=== PATIENT | male | born 1945 | race Caucasian/White ===

== ENCOUNTER 2017-04-07 01:08 | Emergency (ER) | payer OTHER, BC ==
[2017-04-07 01:32] VITALS: BP 113/65; PULSE 82; BMI 41.5
[2017-04-07 01:35] VITALS: TEMP 98.2
[2017-04-07] MEDS ORDERED: valACYclovir HCL 1000 MG TABLET PO ONE (02:56)
[2017-04-07] MEDS ORDERED: OXYCODONE/APAP 5/325MG COMBO TABLET PO PRN (02:56)
--- NOTE | 2017-04-07 03:16 | PDOC ---
History of Present Illness - General Chief Complaint: Pain Stated Complaint: SHOULDER PAIN Time Seen by Provider: 04/07/17 02:22 - History of Present Illness Initial Comments: 04/07/17 03:06 CHIEF COMPLAINT: shingles HISTORY OF PRESENT ILLNESS: 72 yo M presents to ED with shingles outbreak. Patient reports "I know what this is, this is exactly like all my other shingles outbreaks. I just wanted to get some pain medicine because it's really painful." ALLERGIES: No known drug allergies REVIEW OF SYSTEMS General/Constitutional: Denies fever or chills. Denies weakness, weight change. HEENT: Denies change in vision. Denies ear pain or discharge. Denies sore throat. Cardiovascular: Denies chest pain or shortness of breath. Respiratory: Denies cough, wheezing, or hemoptysis. Gastrointestinal: Denies nausea, vomiting, diarrhea or constipation. Denies rectal bleeding. Genitourinary: Denies dysuria, frequency, or change in urination. Musculoskeletal: Denies joint or muscle swelling or pain. Denies neck or back pain. Skin and breasts: Shingles outbreak. PHYSICAL EXAM General Appearance: Well-appearing, appropriately dressed. No apparent distress , no intoxication. HEENT: EOMI, PERRLA, normal ENT inspection, normal voice, TMs normal, pharynx normal. No conjunctival pallor. No photophobia, scleral icterus. Respiratory/Chest: Lungs CTAB. Cardiovascular: RRR. S1, S2. No JVD, murmur, bradycardia, tachycardia. Integumentary: Unilateral vesicular rash to R upper body, no facial or eye involvement. 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 Fully oriented, alert. Appropriate mood/affect. Motor strength 5/5. No appreciable EOM palsy, facial droop or sensory deficit. Past History - Past Medical History Allergies/Adverse Reactions: Allergies Allergy/AdvReac Type Severity Reaction Status Date / Time No Known Allergies Allergy Verified 04/07/17 01:28 Home Medications: Ambulatory Orders Aspirin Coated [Ecotrin -] 81 mg PO DAILY 10/04/12 Multivitamin [Multiple Vitamins] 1 each PO DAILY 10/04/12 Tamsulosin HCl 0.4 mg PO DAILY 10/04/12 Valsartan/Hydrochlorothiazide [Diovan Hct 160-12.5 mg Tablet -] 1 combo PO DAILY 10/04/12 Ascorbic Acid [Vitamin C -] 500 mg PO DAILY 07/01/13 Cholecalciferol (Vitamin D3) [Vitamin D3] 1,000 unit PO DAILY 07/01/13 Atorvastatin Calcium 20 mg PO HS 04/07/17 Oxycodone HCl/Acetaminophen [Percocet 5-325 mg Tablet] 1 combo PO Q6H PRN #20 tablet MDD 4 04/07/17 Valacyclovir HCl [Valtrex -] 1,000 mg PO TID #21 tablet 04/07/17 Anemia: No Asthma: No Cancer: No Cardiac Disorders: No CVA: No COPD: No CHF: No Dementia: No Diabetes: No GI Disorders: No Disorders: Yes ([facility]) HTN: Yes Hypercholesterolemia: No Liver Disease: No Seizures: No Thyroid Disease: No Other medical history: shingles - Surgical History Abdominal Surgery: Yes Appendectomy: No Cardiac Surgery: No Cholecystectomy: Yes (OPEN) Lung Surgery: No Neurologic Surgery: No Orthopedic Surgery: No - Psycho/Social/Smoking Cessation Hx Anxiety: No Suicidal Ideation: No Smoking Status: No Smoking History: Former smoker Have you smoked in the past 12 months: No Number of Cigarettes Smoked Daily: 0 If you are a former smoker, when did you quit?: 1959'S Information on smoking cessation initiated: No Hx Alcohol Use: No Drug/Substance Use Hx: No Hx Substance Use Treatment: No *Physical Exam - Vital Signs Last Vital Signs Temp Pulse Resp BP Pulse Ox 98.2 F 82 18 113/65 93 L 04/07/17 01:34 04/07/17 01:30 04/07/17 01:30 04/07/17 01:30 04/07/17 01:30 *DC/Admit/Observation/Transfer Diagnosis at time of Disposition: Shingles outbreak Qualifiers: Herpes zoster complications: without complications Qualified Code(s): B02.9 - Zoster without complications - Discharge Dispostion Disposition: HOME Admit: No - Prescriptions Prescriptions: Oxycodone HCl/Acetaminophen [Percocet 5-325 mg Tablet] 1 combo PO Q6H PRN #20 tablet MDD 4 PRN Reason: Pain Level 6-10 Valacyclovir HCl [Valtrex -] 1,000 mg PO TID #21 tablet - Referrals Referrals: Joshua Portillo MD [Primary Care Provider] - - Patient Instructions Printed Discharge Instructions: DI for Shingles Additional Instructions: Please take medications as prescribed and follow up with Dr. Portillo within the next 3-5 days. If you experience any rash, tingling, or pain to your face or eyes, please return to the ER immediately.
[2017-04-07] MEDS ORDERED: OXYCODONE/APAP 5/325MG COMBO TABLET ONE (03:24)
--- NOTE | 2017-04-07 03:32 | PDOC ---
[id number] 93 L 04/07/17 01:34 04/07/17 01:30 04/07/17 01:30 04/07/17 01:30 04/07/17 01:30 ED Treatment Course - Medications Given in the ED: ED Medications Discontinued Medications Generic Name Dose Route Start Last Admin Trade Name Freq PRN Reason Stop Dose Admin Valacyclovir HCl 1,000 mg 04/07/17 02:56 04/07/17 03:26 Valtrex - PO 04/07/17 02:57 1,000 mg ONCE ONE Administration Medical Decision Making - Medical Decision Making 04/07/17 03:32 agree with care from VERONICA Morales *DC/Admit/Observation/Transfer Diagnosis at time of Disposition: Shingles outbreak - Discharge Dispostion Disposition: HOME - Prescriptions Prescriptions: Oxycodone HCl/Acetaminophen [Percocet 5-325 mg Tablet] 1 combo PO Q6H PRN #20 tablet MDD 4 PRN Reason: Pain Level 6-10 Valacyclovir HCl [Valtrex -] 1,000 mg PO TID #21 tablet - Referrals Referrals: Joshua Portillo MD [Primary Care Provider] - - Patient Instructions Printed Discharge Instructions: DI for Shingles Additional Instructions: Please take medications as prescribed and follow up with Dr. Portillo within the next 3-5 days. If you experience any rash, tingling, or pain to your face or eyes, please return to the ER immediately.
== END 2017-04-07 03:36 | disposition home or self-care (01) ==
LOC: JER 01:08
DX: B02.9 Zoster without complications (principal); I10 Essential (primary) hypertension; N40.0 Benign prostatic hyperplasia without lower urinary tract symptoms
CPT/HCPCS: 99282-25

== ENCOUNTER 2019-05-08 10:08 | Day surgery (SDC) | payer OTHER, BC ==
[2019-05-02 14:47] VITALS: BMI 39.8
[2019-05-08 11:33] VITALS: BP 193/108; PULSE 80; TEMP 97.8
[2019-05-08] MEDS ORDERED: LIDOCAINE HCL/PF 2% SDV 5ML VIAL ONE (12:18)
[2019-05-08] MEDS ORDERED: PROPOFOL 20 ML ONE ×2 (12:18)
[2019-05-08] MEDS ORDERED: LABETALOL HCL 100 MG TABLET (FP) PO ONE (12:50)
== END 2019-05-08 14:00 | disposition home or self-care (01) ==
LOC: FASU 10:08
PROVIDERS: ATTEND Internal Medicine Gastroenterology
PROC: 0DJD8ZZ Inspection of Lower Intestinal Tract, Via Natural or Artificial Opening Endoscopic (ICD-10-PCS; principal; 2019-05-08)
DX: Z53.09 Procedure and treatment not carried out because of other contraindication (principal); R10.9 Unspecified abdominal pain; R03.0 Elevated blood-pressure reading, without diagnosis of hypertension
CPT/HCPCS: 82962

== ENCOUNTER 2019-10-16 09:33 | Day surgery (SDC) | payer OTHER, BC ==
[2019-10-16 10:35] VITALS: BMI 39.5
[2019-10-16 12:59] VITALS: BP 145/86
[2019-10-16 13:01] VITALS: PULSE 84; TEMP 97.8
--- NOTE | 2019-10-21 16:36 | PATH ---
Surgical Pathology Report Patient Name: ROBER MO JR [facility]. Rec. #: [id number] /Age/Gender: 1945 (Age: 74) / M Account: [id number] Location: [facility] Taken: 10/16/2019 Received: 10/16/2019 Reported: 10/21/2019 Physicians: Michelle Foley M.D. Specimen(s) Received A: SECOND PORTION DUODENUM B: ANTRUM C: GE JUNCTION Clinical History Dyspepsia Postoperative diagnosis: Gastritis Final Diagnosis A. DUODENUM, SECOND PORTION, BIOPSY: DUODENAL MUCOSA WITHOUT SIGNIFICANT PATHOLOGIC FINDINGS. B. GASTRIC ANTRUM, BIOPSY: GASTRIC ANTRAL MUCOSA WITH MODERATE CHRONIC GASTRITIS. IMMUNOHISTOCHEMICAL STAIN FOR H. PYLORI IS NEGATIVE. C. GE JUNCTION BIOPSY: GASTRIC CARDIAC TYPE MUCOSA WITH MODERATE TO SEVERE CHRONIC FOCAL ACUTE GASTRITIS AND FOCAL INTESTINAL METAPLASIA. NO DYSPLASIA OR SQUAMOUS MUCOSA IDENTIFIED. NO HELICOBACTER-LIKE ORGANISMS IDENTIFIED. Electronically Signed Michelle Pizarro M.D. Gross Description A. Received in formalin, labeled "biopsy second portion of duodenum" are 2 rubalcava, irregular portions of soft tissue measuring 0.1 and 0.2 cm. in greatest dimension. The specimens are submitted in toto in one cassette. B. Received in formalin, labeled "biopsy gastric antrum" is a rubalcava, irregular portion of soft tissue measuring 0.3 cm. in greatest dimension. The specimen is submitted in toto in one cassette. C. Received in formalin, labeled "biopsy GE junction" is a rubalcava, irregular portion of soft tissue measuring 0.3 cm. in greatest dimension. The specimen is submitted in toto in one cassette. 10/18/2019 [facility]10/18/2019
== END 2019-10-16 13:15 | disposition home or self-care (01) ==
LOC: FASU-ENDO 09:33
PROVIDERS: ATTEND Internal Medicine Gastroenterology
PROC: 0DB68ZX Excision of Stomach, Via Natural or Artificial Opening Endoscopic, Diagnostic (ICD-10-PCS; 2019-10-16)
PROC: 0DB98ZX Excision of Duodenum, Via Natural or Artificial Opening Endoscopic, Diagnostic (ICD-10-PCS; principal; 2019-10-16 10:45)
DX: K29.70 Gastritis, unspecified, without bleeding (principal); K31.9 Disease of stomach and duodenum, unspecified
CPT/HCPCS: 82962; 88305-TC; 88342-TC

== ENCOUNTER 2020-07-15 10:15 | Day surgery (SDC) | payer OTHER, BC ==
[2020-07-10 08:59] VITALS: BMI 39.4
[2020-07-15] MEDS ORDERED: PROPOFOL 20 ML ONE ×2 (10:49)
[2020-07-15] MEDS ORDERED: LIDOCAINE HCL/PF 2% SDV 5ML VIAL ONE (10:49)
[2020-07-15 12:23] VITALS: TEMP 98.3
[2020-07-15 12:54] VITALS: BP 147/82; PULSE 86
--- NOTE | 2020-07-22 12:04 | PATH ---
Surgical Pathology Report Patient Name: ROBER MO JR [facility]. Rec. #: [id number] /Age/Gender: 1945 (Age: 75) / M Account: [id number] Location: [facility] Taken: 07/15/2020 Received: 07/15/2020 Reported: 07/22/2020 Physicians: Michelle Foley M.D. Specimen(s) Received A: GASTRIC ANTRUM B: GE JUNCTION Clinical History Hx Gil's Postoperative diagnosis: Esophagitis, gastritis, Gil's esophagus Final Diagnosis A. GASTRIC ANTRUM, BIOPSY: MODERATE CHRONIC ACTIVE GASTRITIS WITH FOCAL INTESTINAL METAPLASIA. IMMUNOSTAIN IS NEGATIVE FOR H. PYLORI ORGANISMS. B. GE JUNCTION, BIOPSY: GASTRIC CARDIA-TYPE MUCOSA SHOWING SEVERE CHRONIC ACTIVE GASTRITIS WITH FOCAL INTESTINAL METAPLASIA.(SEE NOTE) NEGATIVE FOR DYSPLASIA. IMMUNOSTAIN IS POSITIVE FOR H.PYLORI ORGANISMS. PAS STAIN IS NEGATIVE FOR FUNGAL ORGANISMS. ESOPHAGEAL (SQUAMOUS) MUCOSA WITH NO SIGNIFICANT PATHOLOGIC FINDINGS. 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 Electronically Signed Janee Saeed M.D. Gross Description A. Received in formalin, labeled "gastric antrum" is a rubalcava, irregular portion of soft tissue measuring 0.3 cm. in greatest dimension. The specimen is submitted in toto in one cassette. B. Received in formalin, labeled "GE junction" are 5 rubalcava, irregular portions of soft tissue ranging from 0.2-0.3 cm. in greatest dimension. The specimens are submitted in toto in one cassette. ebram/07/16/2020
== END 2020-07-15 12:57 | disposition home or self-care (01) ==
LOC: FASU-ENDO 10:15
PROVIDERS: ATTEND Internal Medicine Gastroenterology
PROC: 0DB68ZX Excision of Stomach, Via Natural or Artificial Opening Endoscopic, Diagnostic (ICD-10-PCS; 2020-07-15)
PROC: 0DB38ZX Excision of Lower Esophagus, Via Natural or Artificial Opening Endoscopic, Diagnostic (ICD-10-PCS; 2020-07-15)
PROC: 0DB98ZX Excision of Duodenum, Via Natural or Artificial Opening Endoscopic, Diagnostic (ICD-10-PCS; principal; 2020-07-15 12:00)
DX: K22.70 Barrett's esophagus without dysplasia (principal); K29.50 Unspecified chronic gastritis without bleeding; K31.9 Disease of stomach and duodenum, unspecified; B96.81 Helicobacter pylori [H. pylori] as the cause of diseases classified elsewhere
CPT/HCPCS: 82962; 88305-TC; 88312-TC; 88342-TC

== ENCOUNTER 2024-01-16 14:03 | Inpatient (IN) | payer OTHER, BC ==
[2024-01-16] MEDS: SODIUM CHLORIDE 0.9% 500 ML INFUS.BAG IV ONE (16:04)
[2024-01-16 16:28] LABS: BASO % 0.3 % (0-2.0); EOS % 2.3 % (0-4.5); HEMATOCRIT 42.1 % (35.4-49); HEMOGLOBIN 13.6 GM/dL (11.7-16.9); LYMPH % 13.5 % (8-40); MCH 29.1 pg (25.7-33.7); MCHC 32.3 g/dl (32.0-35.9); MEAN CELL VOLUME 90.1 fl (80-96); MEAN PLT VOLUME 9.4 fl (7.5-11.1); MONO % 7.6 % (3.8-10.2); NEUT % 76.3 % (42.8-82.8); PLATELET COUNT 205 10^3/uL (134-434); RBC 4.67 M/mm3 (4.00-5.60)
[2024-01-16 16:31] LABS: INR 1.08 (0.83-1.09); PROTHROMBIN TIME (PATIENT) 12.5 SEC (9.7-13.0)
[2024-01-16 16:33] LABS: POTASSIUM 4.9 mmol/L (3.5-5.1)
[2024-01-16 16:36] LABS: CALCIUM 8.8 mg/dL (8.5-10.1)
[2024-01-16 16:37] LABS: ALBUMIN 3.1 g/dl (3.4-5.0); MAGNESIUM 1.8 mg/dL (1.8-2.4)
[2024-01-16 16:38] LABS: BLOOD UREA NITROGEN 19.6 mg/dL (7-18)
[2024-01-16 16:40] LABS: CREATININE 0.9 mg/dL (0.55-1.3); PHOSPHOROUS 3.3 mg/dL (2.5-4.9)
[2024-01-16 16:41] LABS: BILIRUBIN,TOTAL 0.3 mg/dL (0.2-1); TOT PROT 6.3 g/dl (6.4-8.2)
[2024-01-16 17:23] LABS: EPI CELLS 2 /uL (0-25.1); HYALINE CASTS 0 /uL (0-3.1); URINE APPEARANCE CLEAR; URINE BACTERIA 2 /uL (0-1359); URINE BILIRUBIN NEGATIVE (NEGATIVE); URINE COLOR YELLOW; URINE GLUCOSE (UA) NEGATIVE (NEGATIVE); URINE KETONE NEGATIVE (NEGATIVE); URINE LEUK ESTERASE TRACE (NEGATIVE); URINE NITRITE NEGATIVE (NEGATIVE); URINE PROTEIN NEGATIVE (NEGATIVE); URINE RBC 11 /uL (0-23.9); URINE UROBILINOGEN 0.2 mg/dL (0.2-1.0); URINE WBC 5 /uL (0-25.8)
[2024-01-17 08:39] LABS: BASO % 0.7 % (0-2.0); EOS % 3.3 % (0-4.5); HEMOGLOBIN 14.7 GM/dL (11.7-16.9); LYMPH % 15.8 % (8-40); MCH 29.6 pg (25.7-33.7); MCHC 33.4 g/dl (32.0-35.9); MEAN CELL VOLUME 88.6 fl (80-96); MEAN PLT VOLUME 9.1 fl (7.5-11.1); MONO % 8.6 % (3.8-10.2); NEUT % 71.6 % (42.8-82.8); PLATELET COUNT 204 10^3/uL (134-434); RBC 4.97 M/mm3 (4.00-5.60); RDW 14.4 % (11.9-15.9); WHITE BLOOD COUNT 7.9 K/mm3 (4.0-10.0)
[2024-01-17 09:18] LABS: BLOOD UREA NITROGEN 12.4 mg/dL (7-18); CALCIUM 9.2 mg/dL (8.5-10.1); CREATININE 0.9 mg/dL (0.55-1.3); POTASSIUM 4.3 mmol/L (3.5-5.1)
[2024-01-17] MEDS: amLODIPine BESYLATE 5 MG TABLET (FP) PO SCH (09:26)
[2024-01-17] MEDS: PRAMIPEXOLE DIHYDROCHLORIDE 0.5 MG TABLET PO SCH (09:26)
[2024-01-17] MEDS: metoPROLOL SUCCINATE 25 MG TAB.SR.24H (FP) PO SCH (09:26)
[2024-01-17] MEDS: FUROSEMIDE 40 MG TABLET (FP) PO SCH (09:26)
[2024-01-17] MEDS: TAMSULOSIN HCL 0.4 MG CAP PO SCH (21:40)
[2024-01-17] MEDS: PRAMIPEXOLE DIHYDROCHLORIDE PO SCH (21:40)
[2024-01-17] MEDS: ATORVASTATIN CA 10 MG TABLET (FP) PO SCH (21:41)
[2024-01-17] MEDS ORDERED: PRAMIPEXOLE DIHYDROCHLORIDE 0.5 MG TABLET PO SCH (22:00)
[2024-01-18] MEDS: DOXYCYCLINE HYCLATE 100 MG CAPSULE PO SCH (18:08)
[2024-01-18 21:53] VITALS: RESP 18
[2024-01-19 11:55] VITALS: BMI 35.7
[2024-01-19 22:23] VITALS: BP 147/82; PULSE 63; TEMP 97.8
== END 2024-01-20 03:00 | DRG 57 ==
LOC: JER 14:03 → INTOOBSV 17:40 → JERBED 17:40 → J6S 21:09 → OBSVTOIN 01-17 10:10 → J8W 01-18 15:50
PROVIDERS: ADMIT Internal Medicine; ATTEND Family Medicine
DX: G20.A1 Parkinson's disease without dyskinesia, without mention of fluctuations (principal); N39.0 Urinary tract infection, site not specified; R62.7 Adult failure to thrive; I10 Essential (primary) hypertension; E11.9 Type 2 diabetes mellitus without complications; E66.9 Obesity, unspecified; Z68.35 Body mass index [BMI] 35.0-35.9, adult; N40.0 Benign prostatic hyperplasia without lower urinary tract symptoms; E78.5 Hyperlipidemia, unspecified
CPT/HCPCS: 0241U-QW; 36415; 71045-TC-FY; 71250-TC; 80048; 80053; 81003; 82962; 83735; 84100; 84484; 85025; 85610; 85730; 86850; 86900; 86901; 87086; 87186; 87635; 93005; 93010; 93970-TC; 97116-GP; 97162-GP; 99285-25; G0378

== ENCOUNTER 2024-04-04 16:19 | Inpatient (IN) | payer OTHER, BC ==
[2024-04-04 18:09] LABS: BASO % 0.5 % (0-2.0); EOS % 1.4 % (0-4.5); HEMATOCRIT 38.3 % (35.4-49); HEMOGLOBIN 12.4 GM/dL (11.7-16.9); LYMPH % 10.7 % (8-40); MCH 29.4 pg (25.7-33.7); MCHC 32.4 g/dl (32.0-35.9); MEAN CELL VOLUME 90.6 fl (80-96); MEAN PLT VOLUME 9.5 fl (7.5-11.1); MONO % 7.5 % (3.8-10.2); NEUT % 79.9 % (42.8-82.8); PLATELET COUNT 186 10^3/uL (134-434); RBC 4.23 M/mm3 (4.00-5.60); RDW 15.6 % (11.9-15.9); WHITE BLOOD COUNT 7.3 K/mm3 (4.0-10.0)
[2024-04-04 18:31] LABS: POTASSIUM 4.8 mmol/L (3.5-5.1)
[2024-04-04 18:34] LABS: ALBUMIN 3.2 g/dl (3.4-5.0); BLOOD UREA NITROGEN 21.5 mg/dL (7-18); CALCIUM 8.9 mg/dL (8.5-10.1); MAGNESIUM 2.3 mg/dL (1.8-2.4)
[2024-04-04 18:38] LABS: BILIRUBIN,TOTAL 0.3 mg/dL (0.2-1)
[2024-04-04 18:42] LABS: N-TERMINAL BNP 820.6 pg/ml (5-450)
[2024-04-04] MEDS ORDERED: CARBIDOPA/LEVODOPA 25/100 TABLET (FP) ONE (19:10)
[2024-04-04 19:46] LABS: INR 0.91 (0.83-1.09); PROTHROMBIN TIME (PATIENT) 10.3 SEC (9.7-13.0)
[2024-04-04 19:49] LABS: ACTIVATED PTT 28.8 SECONDS (25.2-36.5)
[2024-04-04] MEDS: HEPARIN NA (PORCINE) 5,000 UNITS/ML 1ML VIAL SQ SCH (21:54)
[2024-04-04] MEDS: TAMSULOSIN HCL 0.4 MG CAP PO SCH (21:54)
[2024-04-04] MEDS: ATORVASTATIN CA 10 MG TABLET (FP) PO SCH (21:54)
[2024-04-04] MEDS: CEFAZOLIN 1 GM in DEXTROSE 5%-WATER - 50 ML IVPB SCH (21:55)
[2024-04-05 00:39] VITALS: BMI 36.8
[2024-04-05] MEDS: metoPROLOL SUCCINATE 25 MG TAB.SR.24H (FP) PO SCH (09:04)
[2024-04-05] MEDS: SERTRALINE HCL 25 MG TABLET (FP) PO SCH (09:04)
[2024-04-05] MEDS: VALSARTAN 80 MG TABLET PO SCH (09:04)
[2024-04-05] MEDS: PRAMIPEXOLE DIHYDROCHLORIDE 0.5 MG TABLET PO SCH (09:07)
[2024-04-05 09:22] LABS: PH,URINE 7.5 (5.0-8.0); URINE APPEARANCE CLEAR; URINE BILIRUBIN NEGATIVE (NEGATIVE); URINE COLOR YELLOW; URINE GLUCOSE (UA) NEGATIVE (NEGATIVE); URINE KETONE NEGATIVE (NEGATIVE); URINE LEUK ESTERASE NEGATIVE (NEGATIVE); URINE NITRITE NEGATIVE (NEGATIVE); URINE PROTEIN NEGATIVE (NEGATIVE); URINE UROBILINOGEN 0.2 mg/dL (0.2-1.0)
[2024-04-05 09:30] LABS: BASO % 0.7 % (0-2.0); HEMATOCRIT 36.6 % (35.4-49); HEMOGLOBIN 12.3 GM/dL (11.7-16.9); LYMPH % 15.6 % (8-40); MCH 30.1 pg (25.7-33.7); MCHC 33.7 g/dl (32.0-35.9); MEAN CELL VOLUME 89.3 fl (80-96); MEAN PLT VOLUME 9.2 fl (7.5-11.1); MONO % 7.7 % (3.8-10.2); PLATELET COUNT 179 10^3/uL (134-434); RBC 4.11 M/mm3 (4.00-5.60); RDW 15.6 % (11.9-15.9); WHITE BLOOD COUNT 7.6 K/mm3 (4.0-10.0)
[2024-04-05 09:57] LABS: ALBUMIN 2.9 g/dl (3.4-5.0); BILIRUBIN,TOTAL 0.5 mg/dL (0.2-1); BLOOD UREA NITROGEN 16.7 mg/dL (7-18); CALCIUM 8.5 mg/dL (8.5-10.1); CREATININE 0.8 mg/dL (0.55-1.3); TOT PROT 5.5 g/dl (6.4-8.2)
[2024-04-05] MEDS: FUROSEMIDE 40 MG/4 ML INJECTABLE VIAL IVPUSH SCH (11:08)
[2024-04-06] MEDS: CEPHALEXIN MONOHYDRATE 500 MG CAPSULE (UD) PO SCH (15:33)
[2024-04-07 07:19] VITALS: RESP 18
[2024-04-07 08:52] LABS: BASO % 0.8 % (0-2.0); EOS % 4.3 % (0-4.5); HEMATOCRIT 40.6 % (35.4-49); HEMOGLOBIN 13.3 GM/dL (11.7-16.9); LYMPH % 14.8 % (8-40); MCH 29.6 pg (25.7-33.7); MCHC 32.6 g/dl (32.0-35.9); MEAN CELL VOLUME 90.7 fl (80-96); MEAN PLT VOLUME 9.9 fl (7.5-11.1); MONO % 7.8 % (3.8-10.2); NEUT % 72.3 % (42.8-82.8); PLATELET COUNT 169 10^3/uL (134-434); RBC 4.48 M/mm3 (4.00-5.60); RDW 15.7 % (11.9-15.9); WHITE BLOOD COUNT 7.8 K/mm3 (4.0-10.0)
[2024-04-07 09:17] LABS: ALBUMIN 2.8 g/dl (3.4-5.0); BLOOD UREA NITROGEN 17.5 mg/dL (7-18); CALCIUM 8.4 mg/dL (8.5-10.1)
[2024-04-07 09:21] LABS: CREATININE 0.7 mg/dL (0.55-1.3)
[2024-04-07 09:22] LABS: BILIRUBIN,TOTAL 0.5 mg/dL (0.2-1); TOT PROT 5.6 g/dl (6.4-8.2)
[2024-04-08 09:02] LABS: BASO % 0.5 % (0-2.0); EOS % 4.4 % (0-4.5); HEMATOCRIT 39.1 % (35.4-49); HEMOGLOBIN 13.1 GM/dL (11.7-16.9); LYMPH % 15.7 % (8-40); MCHC 33.6 g/dl (32.0-35.9); MEAN CELL VOLUME 89.4 fl (80-96); MEAN PLT VOLUME 9.4 fl (7.5-11.1); MONO % 7.2 % (3.8-10.2); NEUT % 72.2 % (42.8-82.8); PLATELET COUNT 169 10^3/uL (134-434); RBC 4.38 M/mm3 (4.00-5.60); RDW 15.5 % (11.9-15.9)
[2024-04-08 09:25] LABS: ALBUMIN 2.9 g/dl (3.4-5.0); BLOOD UREA NITROGEN 17.2 mg/dL (7-18); CREATININE 0.8 mg/dL (0.55-1.3)
[2024-04-08 09:26] LABS: BILIRUBIN,TOTAL 0.4 mg/dL (0.2-1); CALCIUM 8.9 mg/dL (8.5-10.1); TOT PROT 5.6 g/dl (6.4-8.2)
[2024-04-08 14:44] VITALS: BP 131/61; PULSE 62; TEMP 98.2
== END 2024-04-08 15:17 | DRG 291 ==
LOC: JER 16:19 → JERBED 18:54 → J8W 19:47
PROVIDERS: ADMIT Family Medicine; ATTEND Family Medicine
DX: I11.0 Hypertensive heart disease with heart failure (principal); I50.33 Acute on chronic diastolic (congestive) heart failure; L03.115 Cellulitis of right lower limb; N40.0 Benign prostatic hyperplasia without lower urinary tract symptoms; K44.9 Diaphragmatic hernia without obstruction or gangrene; R62.7 Adult failure to thrive; Z68.35 Body mass index [BMI] 35.0-35.9, adult; G20.A1 Parkinson's disease without dyskinesia, without mention of fluctuations; E78.5 Hyperlipidemia, unspecified; E11.9 Type 2 diabetes mellitus without complications; R26.81 Unsteadiness on feet
CPT/HCPCS: 36415; 70450-TC; 71045-TC-FY; 80053; 81003; 83735; 83880; 84443; 84484; 85025; 85610; 85730; 87040; 87635; 93005; 93010; 93306-TC; 97116-GP; 97161-GP; 99285-25; J1644